=== PATIENT | female | born 1975 | race Caucasian/White ===

== ENCOUNTER → 2016-09-09 | Day surgery (SDC) | payer OTHER ==
[~2016-09-09] MED LIST: ACET325 PO; KETOROLAC TROMETHAMINE 30 MG/ML (IVP) VIAL ONE; LACTATED RINGER'S 1000 ML INJ 1,000 ML ONE; MIDAZOLAM HCL 2 MG/2 ML VIAL ONE; ONDANSETRON HCL 4 MG/2 ML VIAL IV PUSH ONE; OXYTOCIN 10 UNIT/ML AMP ONE; PERC5TAB12 PO; PROPOFOL 200 MG/20 ML AMP IV ONE; ceFAZolin INJ 1,000 MG VIAL ONE
--- NOTE | 2016-09-13 22:43 | MP ---
cc: LINDSEY CUENCA MD DATE OF SURGERY 09/09/2016 PREOPERATIVE DIAGNOSIS Missed . POSTOPERATIVE DIAGNOSIS Missed . INDICATIONS The patient is a 40-year who presented to clinic for a routine OB visit who was supposed to be 12 weeks only was measuring 10 weeks and there was no cardiac activity noted confirmed by two medical staff. Options of expectant management medical management or surgery were offered to the patient. She was distraught and wanted surgical management as soon as possible, PROCEDURE PERFORMED Exam under anesthesia, suction D&C. SURGEON Lindsey Cuenca MD MANAGER GRAPHIC Staff COMPLICATIONS None. IV FLUIDS 700 mL URINE OUTPUT 200 mL prior to procedure. ESTIMATED BLOOD LOSS Minimal. COUNTS Correct. SPECIMEN Products of conception. INTRAOPERATIVE FINDINGS Uterus approximately 8-10 weeks in size, anteverted, no adnexal masses. Cervix closed, no bleeding. After procedure the uterus approximately 6-7 weeks in size. Good tone. No bleeding. PROCEDURE IN DETAIL After informed consent, the patient was taken to the operating room where LMA was administered without complication. She was placed in dorsolithotomy position in [facility] stirrups. The perineum was prepped and draped in normal sterile fashion. Red rubber catheter was used to drain the bladder, approximately 200 mL of urine were noted. The bivalve speculum was placed in the vagina. Single tooth tenaculum was placed on anterior lip of the cervix. The cervix was dilated to accommodate an 8-mm Upper [place] suction curette. A suction curet was introduced. Multiple passes were performed until the uterus was evacuated. A sharp curettage was performed and noted to have a good cry on all aspects. The single-tooth tenaculum was removed. A sponge stick was used to ensure hemostasis. The patient was removed from dorsal lithotomy and placed in supine position. Anesthesia was reversed without complications. She had prophylactic antibiotics. SCDs on lower extremities for the duration of procedure. Lindsey Cuenca MD PE/ /7:04 PM /10:34 PM [facility]
== END | disposition home or self-care (01) ==
LOC: ESDC 12:53
PROVIDERS: ATTEND Obstetrics & Gynecology
DX: O02.1 Missed abortion (principal); Z3A.10 10 weeks gestation of pregnancy
CPT/HCPCS: 88305; J0690; J1885; J2250; J2405; J2590; J3010; J7120